=== PATIENT | male | born 1960 | race Caucasian/White ===

== ENCOUNTER 2018-12-19 13:58 | Emergency (ER) | payer OTHER ==
[~2018-12-19] VITALS: Ht 193 cm; Wt 117.0 kg
[~2018-12-19 13:58] MED LIST: AMOXICILLIN500 MG PO
[2018-12-19] MEDS ORDERED: BAYER ASPIRIN E81 MG PO (14:35)
[2018-12-19] MEDS ORDERED: OMEPRAZOLE20 M2 PO (14:35)
[2018-12-19] MEDS ORDERED: APRESOLINE25 MG/TAB PO (14:36)
[2018-12-19] MEDS ORDERED: LOPRESSOR 550 MG/TAB PO (14:36)
[2018-12-19] MEDS ORDERED: HYDROCHLOROT12.5 M1 PO (14:36)
[2018-12-19] MEDS ORDERED: ATORVASTATIN CA40 MG PO (14:37)
[2018-12-19] MEDS ORDERED: CANDESARTAN CILE4 MG PO (14:38)
[2018-12-19] MEDS ORDERED: CLOPIDOGREL75 MG PO (14:38)
[2018-12-19] MEDS ORDERED: FLEXERIL PO (16:04)
[2018-12-19 16:10] VITALS: BP 103/68
== END 2018-12-19 16:10 | disposition home or self-care (01) | DRG 552 ==
LOC: ED 13:58
DX: M62.830 Muscle spasm of back (principal); I10 Essential (primary) hypertension; Z95.1 Presence of aortocoronary bypass graft; Z95.5 Presence of coronary angioplasty implant and graft